=== PATIENT | female | born 2000 | race African-American/Black ===

== ENCOUNTER 2021-08-11 07:38 | Emergency (ER) | payer MEDICAID, SELFPAY ==
[2021-08-11] MEDS ORDERED: Acetaminophen 500 MG TAB ONE (08:12)
[2021-08-11] MEDS ORDERED: Ibuprofen 200 MG TAB ONE (08:12)
== END 2021-08-11 10:23 | disposition home or self-care (01) ==
LOC: ERS 07:38
DX: B34.9 Viral infection, unspecified (principal); I10 Essential (primary) hypertension
CPT/HCPCS: 94760